=== PATIENT | female | born 1940 | race Caucasian/White ===

== ENCOUNTER 2016-06-14 23:23 | Inpatient (IN) | payer MEDICARE, BC ==
[~2016-06-14] VITALS: Ht 165.1 cm; Wt 61.7 kg
[2016-06-15] VITALS (37 sets, daily range): BP systolic 82–111; RESP 13–22; TEMP 97–98; Ht 165.1 cm; Wt 61.7 kg
[2016-06-15] MEDS ORDERED: ACETAMINOPHEN 325 MG TAB ONE (03:25)
[2016-06-15] MEDS ORDERED: AMIODARONE 150MG/3ML VIAL IV ONE (05:38)
[2016-06-15] MEDS ORDERED: AMIODARONE 450 MG in DEXTROSE 5% 250 ML IV SCH (05:45)
[2016-06-15] MEDS ORDERED: ONDANSETRON 4 MG VIAL ONE (06:07)
[2016-06-15] MEDS ORDERED: PANTOPRAZOLE 40 MG VIAL IV ONE (06:07)
[2016-06-15] MEDS ORDERED: SODIUM CHLORIDE 0.9% 100 ML IV ONE (07:17)
[2016-06-15] MEDS ORDERED: SODIUM CHLORIDE 0.9% 1,000 ML ONE ×3 (07:17→08:35)
[2016-06-15] MEDS ORDERED: CEFTRIAXONE 1 GM VIAL ONE (07:17)
[2016-06-15] MEDS ORDERED: AMIODARONE 450 MG in DEXTROSE 5% EXCEL 250 ML IV SCH (09:05)
[2016-06-15] MEDS ORDERED: ONDANSETRON 4 MG VIAL IV PUSH PRN (09:05)
[2016-06-15] MEDS ORDERED: GLUCAGON 1 MG VIAL IM PRN (09:05)
[2016-06-15] MEDS ORDERED: ALPRAZOLAM 0.25 MG TAB PO PRN (09:05)
[2016-06-15] MEDS ORDERED: LACTULOSE SOLN 20GM/30ML UDC PO PRN (09:05)
[2016-06-15] MEDS ORDERED: PROMETHAZINE 25 MG/ML VIAL IV PRN (09:05)
[2016-06-15] MEDS ORDERED: DEXTROSE 50% SYRINGE 50 ML IV PRN (09:05)
[2016-06-15] MEDS ORDERED: ALU/MAG/SIM 30 ML UDC PO PRN (09:05)
[2016-06-15] MEDS ORDERED: SALINE FLUSH 10 ML FLUSH PRN (09:05)
[2016-06-15] MEDS ORDERED: SODIUM CHLORIDE 0.9% 1,000 ML IV SCH (09:05)
[2016-06-15] MEDS ORDERED: DIGOXIN 0.5 MG/2 ML AMP IV ONE ×2 (11:10→14:10)
[2016-06-15] MEDS: SALINE FLUSH 10 ML FLUSH SCH (20:23)
[2016-06-15] MEDS ORDERED: SODIUM CHLORIDE 0.9% 500 ML IV ONE (23:05)
[2016-06-15] MEDS: SODIUM CHLORIDE 0.9% 1,000 ML IV SCH (23:36)
[2016-06-16] VITALS (70 sets, daily range): BP systolic 79–151; RESP 11–24; TEMP 97.5–99.9
[2016-06-16] MEDS: SALINE FLUSH 10 ML FLUSH SCH ×2 (05:52→20:04)
[2016-06-16] MEDS: SODIUM CHLORIDE 0.9% FLUSH BAG 500 ML IV SCH (05:52)
[2016-06-16] MEDS ORDERED: PHARMACY TO DOSE VANCOMYCIN IV SCH (09:00)
[2016-06-16] MEDS ORDERED: CEFTRIAXONE 2 GM in SODIUM CHLORIDE 0.9% 50 ML IV SCH (09:00)
[2016-06-16] MEDS ORDERED: VANCOMYCIN 1,250 MG in SODIUM CHLORIDE 0.9% 250 ML IV STA (09:44)
[2016-06-16] MEDS: METOPROLOL TART 25 MG TAB PO SCH ×2 (12:12→20:03)
[2016-06-16] MEDS ORDERED: PHARMACY TO DOSE ZOSYN IV SCH (16:55)
[2016-06-16] MEDS: PIPERACIL/TAZO 2.25GM/50ML 50 ML IV SCH (18:37)
[2016-06-17] VITALS (18 sets, daily range): BP systolic 99–139; RESP 12–25; TEMP 97.1–99.8
[2016-06-17] MEDS: PIPERACIL/TAZO 2.25GM/50ML 50 ML IV SCH ×5 (00:07→23:56)
[2016-06-17] MEDS: SODIUM CHLORIDE 0.9% 1,000 ML IV SCH ×2 (00:07→05:18)
[2016-06-17] MEDS: SODIUM CHLORIDE 0.9% FLUSH BAG 500 ML IV SCH (05:19)
[2016-06-17] MEDS: OMNIPAQUE 240 MG/ML, 50 ML PO SCH ×5 (07:25→21:58)
[2016-06-17] MEDS ORDERED: SODIUM CHLORIDE 0.9% 1,000 ML IV SCH (07:25)
[2016-06-17] MEDS ORDERED: MORPHINE 4 MG/ML SYR ONE (09:56)
[2016-06-17] MEDS ORDERED: MORPHINE 4 MG/ML SYR IV ONE (10:25)
[2016-06-17] MEDS: PANTOPRAZOLE 40 MG TAB PO SCH (12:00)
[2016-06-17] MEDS: METOPROLOL TART 25 MG TAB PO SCH ×2 (12:00→20:42)
[2016-06-17] MEDS: SALINE FLUSH 10 ML FLUSH SCH ×2 (12:00→20:00)
[2016-06-17] MEDS: VANCOMYCIN 1,000 MG in SODIUM CHLORIDE 0.9% 250 ML IV SCH (12:01)
[2016-06-18] MEDS: ACETAMINOPHEN 325 MG TAB PO PRN (02:32)
[2016-06-18 03:00] VITALS: BP_SYST 128; RESP 18; TEMP 97.1
[2016-06-18] MEDS: OMNIPAQUE 240 MG/ML, 50 ML PO SCH (03:30)
[2016-06-18] MEDS: SODIUM CHLORIDE 0.9% FLUSH BAG 500 ML IV SCH (05:54)
[2016-06-18] MEDS: PIPERACIL/TAZO 2.25GM/50ML 50 ML IV SCH (06:04)
[2016-06-18] MEDS ORDERED: MISSING DOSE XX ONE (06:05)
[2016-06-18] MEDS: PANTOPRAZOLE 40 MG TAB PO SCH (06:15)
[2016-06-18 07:52] VITALS: BP_SYST 90; RESP 18; TEMP 97.7
[2016-06-18] MEDS: METOPROLOL TART 25 MG TAB PO SCH ×3 (08:03→20:43)
[2016-06-18] MEDS: SALINE FLUSH 10 ML FLUSH SCH ×2 (08:04→20:42)
[2016-06-18] MEDS: VANCOMYCIN 1,000 MG in SODIUM CHLORIDE 0.9% 250 ML IV SCH (11:02)
[2016-06-18] MEDS ORDERED: KCL CR 10 MEQ CAP PO ONE (11:30)
[2016-06-18 11:55] VITALS: BP_SYST 156; RESP 16; TEMP 96
[2016-06-18] MEDS: PIPERACIL/TAZO 3.375GM/50ML 50 ML IV SCH ×3 (12:55→23:39)
[2016-06-18 15:38] VITALS: BP_SYST 138; RESP 16; TEMP 97.3
[2016-06-18 19:31] VITALS: BP_SYST 130; RESP 16; TEMP 98.7
[2016-06-19] VITALS (7 sets, daily range): BP systolic 130–150; RESP 16–18; TEMP 97.6–99.1
[2016-06-19] MEDS: SODIUM CHLORIDE 0.9% FLUSH BAG 500 ML IV SCH (06:00)
[2016-06-19] MEDS: PIPERACIL/TAZO 3.375GM/50ML 50 ML IV SCH ×4 (06:01→23:34)
[2016-06-19] MEDS: PANTOPRAZOLE 40 MG TAB PO SCH (06:01)
[2016-06-19] MEDS: METOPROLOL TART 25 MG TAB PO SCH ×2 (08:55→20:13)
[2016-06-19] MEDS: SALINE FLUSH 10 ML FLUSH SCH ×2 (08:55→19:26)
[2016-06-19] MEDS ORDERED: POTASSIUM PHOSPHATE 15 MMOL in SODIUM CHLORIDE 0.9% 250 ML IV ONE (11:00)
[2016-06-19] MEDS: VANCOMYCIN 1,000 MG in SODIUM CHLORIDE 0.9% 250 ML IV SCH (11:30)
[2016-06-19] MEDS ORDERED: MISSING DOSE XX ONE (16:50)
[2016-06-20] MEDS: ACETAMINOPHEN 325 MG TAB PO PRN (00:21)
[2016-06-20 03:58] VITALS: BP_SYST 128; RESP 16; TEMP 98.6
[2016-06-20] MEDS: SODIUM CHLORIDE 0.9% FLUSH BAG 500 ML IV SCH (05:50)
[2016-06-20] MEDS: PIPERACIL/TAZO 3.375GM/50ML 50 ML IV SCH ×3 (05:50→17:10)
[2016-06-20] MEDS: PANTOPRAZOLE 40 MG TAB PO SCH (06:01)
[2016-06-20 07:28] VITALS: BP_SYST 132; RESP 16; TEMP 98.3
[2016-06-20] MEDS: SALINE FLUSH 10 ML FLUSH SCH ×2 (07:59→19:48)
[2016-06-20] MEDS: VANCOMYCIN 1,250 MG in SODIUM CHLORIDE 0.9% 250 ML IV SCH (07:59)
[2016-06-20] MEDS: METOPROLOL TART 25 MG TAB PO SCH ×2 (08:00→19:46)
[2016-06-20 11:32] VITALS: BP_SYST 130; RESP 16; TEMP 98.5
[2016-06-20] MEDS ORDERED: OMNIPAQUE 350 50ML PO ONE (14:20)
[2016-06-20] MEDS ORDERED: OMNIPAQUE 240 MG/ML, 50 ML PO ONE ×2 (14:30)
[2016-06-20 15:32] VITALS: BP_SYST 145; RESP 16; TEMP 98.5
[2016-06-20 19:36] VITALS: BP_SYST 186; RESP 16; TEMP 99.3
[2016-06-20 23:17] VITALS: BP_SYST 140; RESP 18; TEMP 99.5
[2016-06-21] MEDS: PIPERACIL/TAZO 3.375GM/50ML 50 ML IV SCH ×5 (01:13→23:21)
[2016-06-21 03:30] VITALS: BP_SYST 148; RESP 18; TEMP 97.7
[2016-06-21] MEDS: PANTOPRAZOLE 40 MG TAB PO SCH (05:42)
[2016-06-21] MEDS: SODIUM CHLORIDE 0.9% FLUSH BAG 500 ML IV SCH (05:43)
[2016-06-21] MEDS ORDERED: OPTIRAY 350 100 ML VIAL HMH IV ONE (05:47)
[2016-06-21 07:30] VITALS: BP_SYST 132; RESP 18; TEMP 97.3
[2016-06-21] MEDS ORDERED: MISSING DOSE XX ONE (09:10)
[2016-06-21] MEDS: SALINE FLUSH 10 ML FLUSH SCH ×2 (09:29→20:00)
[2016-06-21] MEDS: VANCOMYCIN 1,250 MG in SODIUM CHLORIDE 0.9% 250 ML IV SCH (09:29)
[2016-06-21] MEDS: METOPROLOL TART 25 MG TAB PO SCH ×2 (09:30→20:00)
[2016-06-21 11:35] VITALS: BP_SYST 130; RESP 18; TEMP 97.6
[2016-06-21 15:27] VITALS: BP_SYST 134; RESP 18; TEMP 98.3
[2016-06-21 19:16] VITALS: BP_SYST 120; RESP 16; TEMP 98.4
[2016-06-21 23:15] VITALS: BP_SYST 130; RESP 16; TEMP 98.2
[2016-06-22 02:31] VITALS: BP_SYST 120; RESP 16; TEMP 97
[2016-06-22] MEDS: PIPERACIL/TAZO 3.375GM/50ML 50 ML IV SCH ×4 (06:24→23:33)
[2016-06-22] MEDS: PANTOPRAZOLE 40 MG TAB PO SCH (06:24)
[2016-06-22] MEDS: SODIUM CHLORIDE 0.9% FLUSH BAG 500 ML IV SCH (06:26)
[2016-06-22 07:45] VITALS: BP_SYST 130; TEMP 97.1
[2016-06-22] MEDS: SALINE FLUSH 10 ML FLUSH SCH ×2 (08:08→20:29)
[2016-06-22] MEDS: ACETAMINOPHEN 325 MG TAB PO PRN (08:10)
[2016-06-22] MEDS: VANCOMYCIN 1,250 MG in SODIUM CHLORIDE 0.9% 250 ML IV SCH (08:10)
[2016-06-22] MEDS: METOPROLOL TART 25 MG TAB PO SCH ×4 (08:13→20:40)
[2016-06-22] MEDS ORDERED: Furosemide 100 MG/10 ML VIAL IV ONE (10:30)
[2016-06-22] MEDS: KCL CR 20 MEQ TAB PO SCH ×2 (11:03→20:30)
[2016-06-22 11:30] VITALS: BP_SYST 140; RESP 18; TEMP 97.2
[2016-06-22] MEDS ORDERED: MISSING DOSE XX ONE (12:50)
[2016-06-22 16:07] VITALS: BP_SYST 116; TEMP 97.9
[2016-06-22 20:34] VITALS: BP_SYST 150; RESP 16; TEMP 98.2
[2016-06-22 22:45] VITALS: BP_SYST 140; RESP 16; TEMP 97.6
[2016-06-23 03:27] VITALS: BP_SYST 176; RESP 18; TEMP 98.2
[2016-06-23] MEDS: SODIUM CHLORIDE 0.9% FLUSH BAG 500 ML IV SCH (06:02)
[2016-06-23] MEDS: PIPERACIL/TAZO 3.375GM/50ML 50 ML IV SCH ×4 (06:03→21:59)
[2016-06-23] MEDS: PANTOPRAZOLE 40 MG TAB PO SCH (06:03)
[2016-06-23 07:13] VITALS: BP_SYST 160; RESP 18; TEMP 97.9
[2016-06-23] MEDS: VANCOMYCIN 1,250 MG in SODIUM CHLORIDE 0.9% 250 ML IV SCH (08:48)
[2016-06-23] MEDS: METOPROLOL TART 25 MG TAB PO SCH ×2 (08:48→21:54)
[2016-06-23] MEDS: KCL CR 20 MEQ TAB PO SCH (08:49)
[2016-06-23] MEDS: SALINE FLUSH 10 ML FLUSH SCH ×2 (08:52→21:59)
[2016-06-23] MEDS ORDERED: METOPROLOL TART 25 MG TAB PO ONE (09:00)
[2016-06-23 11:16] VITALS: BP_SYST 159; RESP 16; TEMP 98.9
[2016-06-23 15:11] VITALS: BP_SYST 132; RESP 16; TEMP 98.5
[2016-06-23] MEDS: NEB-ALBUTEROL 2.5 MG/3 ML INH SCH ×3 (16:15→23:45)
[2016-06-23] MEDS: NEB-NACL 3% 4 ML NEBU INH SCH ×2 (16:52→23:45)
[2016-06-23] MEDS: NEB-BUDESONIDE 0.5 MG INH SCH (16:56)
[2016-06-23] MEDS: VANCOMYCIN SUSP 250 MG/5 ML UDC PO SCH ×2 (17:53→21:55)
[2016-06-23 19:24] VITALS: BP_SYST 110; RESP 20; TEMP 98.6
[2016-06-23] MEDS: ACETAMINOPHEN 325 MG TAB PO PRN (21:53)
[2016-06-23] MEDS: [UNRECOGNIZED DRUG - OTHER] PO SCH (21:54)
[2016-06-23] MEDS: LINEZOLID 600 MG TAB PO SCH (21:55)
[2016-06-23 23:00] VITALS: BP_SYST 120; RESP 20; TEMP 98.7
[2016-06-24 03:55] VITALS: BP_SYST 130; RESP 20; TEMP 98.5
[2016-06-24] MEDS: SODIUM CHLORIDE 0.9% FLUSH BAG 500 ML IV SCH (05:01)
[2016-06-24] MEDS: PANTOPRAZOLE 40 MG TAB PO SCH (05:02)
[2016-06-24] MEDS: PIPERACIL/TAZO 3.375GM/50ML 50 ML IV SCH ×4 (05:02→23:13)
[2016-06-24] MEDS: NEB-NACL 3% 4 ML NEBU INH SCH ×4 (06:36→23:35)
[2016-06-24] MEDS: NEB-ALBUTEROL 2.5 MG/3 ML INH SCH ×5 (06:36→23:35)
[2016-06-24] MEDS: NEB-BUDESONIDE 0.5 MG INH SCH ×2 (06:36→18:32)
[2016-06-24 07:16] VITALS: BP_SYST 178; RESP 16; TEMP 97
[2016-06-24] MEDS: VANCOMYCIN SUSP 250 MG/5 ML UDC PO SCH ×4 (09:21→20:45)
[2016-06-24] MEDS: METOPROLOL TART 25 MG TAB PO SCH ×2 (09:22→20:47)
[2016-06-24] MEDS: LINEZOLID 600 MG TAB PO SCH ×2 (09:22→20:47)
[2016-06-24] MEDS: [UNRECOGNIZED DRUG - OTHER] PO SCH ×2 (09:22→20:47)
[2016-06-24] MEDS: SALINE FLUSH 10 ML FLUSH SCH ×2 (09:22→20:00)
[2016-06-24 10:58] VITALS: BP_SYST 112; RESP 16; TEMP 97.6
[2016-06-24 15:44] VITALS: BP_SYST 114; RESP 16; TEMP 97.4
[2016-06-24 19:56] VITALS: BP_SYST 136; RESP 18; TEMP 97.6
[2016-06-24 23:08] VITALS: BP_SYST 132; RESP 20; TEMP 97.7
[2016-06-25 04:00] VITALS: BP_SYST 134; RESP 20; TEMP 97.5
[2016-06-25] MEDS: SODIUM CHLORIDE 0.9% FLUSH BAG 500 ML IV SCH (05:58)
[2016-06-25] MEDS: PIPERACIL/TAZO 3.375GM/50ML 50 ML IV SCH (06:07)
[2016-06-25] MEDS: NEB-BUDESONIDE 0.5 MG INH SCH ×2 (06:29→19:10)
[2016-06-25] MEDS: NEB-ALBUTEROL 2.5 MG/3 ML INH SCH ×5 (06:29→22:45)
[2016-06-25] MEDS: NEB-NACL 3% 4 ML NEBU INH SCH ×4 (06:29→22:45)
[2016-06-25 08:02] VITALS: BP_SYST 114; RESP 16; TEMP 97.2
[2016-06-25] MEDS: VANCOMYCIN SUSP 250 MG/5 ML UDC PO SCH ×4 (09:10→20:09)
[2016-06-25] MEDS: [UNRECOGNIZED DRUG - OTHER] PO SCH ×2 (09:11→20:09)
[2016-06-25] MEDS: METOPROLOL TART 25 MG TAB PO SCH ×2 (09:11→21:00)
[2016-06-25] MEDS: LINEZOLID 600 MG TAB PO SCH (09:12)
[2016-06-25] MEDS: SALINE FLUSH 10 ML FLUSH SCH ×2 (09:15→20:08)
[2016-06-25 11:54] VITALS: BP_SYST 110; RESP 16; TEMP 98.1
[2016-06-25] MEDS ORDERED: PIPERACIL/TAZO 2.25GM/50ML 50 ML IV SCH (12:00)
[2016-06-25] MEDS ORDERED: PHARMACY TO DOSE CEFEPIME IV SCH (12:25)
[2016-06-25] MEDS ORDERED: PHARMACY TO DOSE VANCOMYCIN IV SCH (12:25)
[2016-06-25] MEDS ORDERED: CEFEPIME 2000 MG/100 ML D5W 100 ML IV SCH (13:00)
[2016-06-25] MEDS: VANCOMYCIN 1,000 MG in SODIUM CHLORIDE 0.9% 250 ML IV SCH (13:36)
[2016-06-25] MEDS: CEFEPIME 2000 MG/100 ML D5W 100 ML IV SCH (20:08)
[2016-06-25 20:36] VITALS: BP_SYST 130; RESP 18; TEMP 97.6
[2016-06-25 23:56] VITALS: BP_SYST 126; RESP 18; TEMP 97.7
[2016-06-26 03:07] VITALS: BP_SYST 128; RESP 18; TEMP 98
[2016-06-26] MEDS: SODIUM CHLORIDE 0.9% FLUSH BAG 500 ML IV SCH (06:08)
[2016-06-26] MEDS: NEB-ALBUTEROL 2.5 MG/3 ML INH SCH ×3 (06:49→14:56)
[2016-06-26] MEDS: NEB-NACL 3% 4 ML NEBU INH SCH ×2 (06:49→11:33)
[2016-06-26] MEDS: NEB-BUDESONIDE 0.5 MG INH SCH (06:49)
[2016-06-26 07:30] VITALS: BP_SYST 130; RESP 16; TEMP 97.3
[2016-06-26] MEDS ORDERED: MISSING DOSE XX ONE (08:15)
[2016-06-26] MEDS: CEFEPIME 2000 MG/100 ML D5W 100 ML IV SCH (08:24)
[2016-06-26] MEDS: SALINE FLUSH 10 ML FLUSH SCH (08:24)
[2016-06-26] MEDS: METOPROLOL TART 25 MG TAB PO SCH (08:31)
[2016-06-26] MEDS: VANCOMYCIN SUSP 250 MG/5 ML UDC PO SCH ×2 (08:31→12:26)
[2016-06-26] MEDS: [UNRECOGNIZED DRUG - OTHER] PO SCH (09:04)
[2016-06-26 11:18] VITALS: BP_SYST 142; RESP 18; TEMP 97.9
[2016-06-26] MEDS: VANCOMYCIN 1,000 MG in SODIUM CHLORIDE 0.9% 250 ML IV SCH (12:21)
[2016-06-26 15:22] VITALS: BP_SYST 122; RESP 20; TEMP 97
[2016-06-26 16:21] VITALS: BP_SYST 122; RESP 20; TEMP 97
== END 2016-06-26 16:52 | disposition home health service (06) | DRG 871 ==
LOC: ENRESERVTM → ENRESERVDT → ER 06-15 00:03 → EMR 06-15 09:02 → ENPENDDIS 06-15 09:02 → CCU 06-15 09:54 → 4THE 06-17 14:47
PROVIDERS: ADMIT Internal Medicine; ATTEND Internal Medicine
PROC: 0W993ZX Drainage of Right Pleural Cavity, Percutaneous Approach, Diagnostic (ICD-10-PCS; principal; 2016-06-15)
CPT/HCPCS: 36415; 36600; 71010; 71260; 74176; 74177; 74230; 76700; 76937; 78227; 80053; 80061; 80069; 80202; 81001; 82150; 82465; 82565; 82607; 82728; 82746; 82785; 82803; 82945; 82947; 83036; 83540; 83605; 83615; 83690; 83880; 83986; 84100; 84134; 84155; 84439; 84443; 84466; 84484; 84520; 85007; 85025; 85027; 85610; 85652; 85730; 86003; 86606; 86612; 86635; 86698; 86850; 86900; 86901; 87040; 87071; 87077; 87088; 87102; 87116; 87186; 87205; 87206; 87493; 87804; 88108; 89051; 93005; 93306; 94640; 94799; 96361; 96365; 96366; 96375; 99223; 99232; 99233